=== PATIENT | male | born 1970 | race Caucasian/White ===

== ENCOUNTER 2021-09-30 02:47 | Emergency (ER) | payer MEDICAID, SELFPAY ==
[2021-09-30 02:57] VITALS: BP 148/72; PULSE 70; O2SAT 99
[2021-09-30 03:00] VITALS: BP 121/57; PULSE 77; RESP 16; O2SAT 99; BMI 23.3
--- NOTE | 2021-09-30 06:03 | ED_ITS ---
HPI - General Adult General Chief complaint: Extremity Problem Stated complaint: sick person? Time Seen by Provider: 09/30/21 06:03 Source: patient Mode of arrival: EMS History of Present Illness HPI narrative: 51-year-old male brought in by EMS and patient is reporting chronic numbness to bilateral feet. According to the patient he was kicked out of the detention in [place] today for 2 months. Patient readily endorses that he is unable to be on the cold and rain and states ?I do not want to get sick?. He denies any drugs or alcohol and is requesting assistance to find a new detention. Otherwise, denies any constitutional symptoms. Related Data Allergies Allergy/AdvReac Type Severity Reaction Status Date / Time Penicillins [PCN] Allergy Rash Verified 09/30/21 03:04 Review of Systems Review of Systems: Pertinent positives and negatives as stated in HPI 10 point review of systems is otherwise negative. [facility] Social History Social History Advance Directives: No Advance Directives Information Provided: Yes Physical Exam ED Vital Signs: Vital Signs - 24 hr 09/30/21 03:00 Pulse Rate 77 Respiratory Rate 16 Blood Pressure 121/57 L Pulse Oximetry 99 BMI result Body Mass Index 23.3 VITAL SIGNS: Reviewed. GENERAL: Poor hygiene, in no acute distress. HEAD: Normocephalic/atraumatic EYES: PERRLA, EOMI EARS: Ext canals without abnormality OROPHARYNX: no oral lesions noted, posterior pharynx clear LUNGS: Normal breath sounds. No adventitious sounds or accessory muscle use. SpO2<99> CARDIOVASCULAR: Regular rate and rhythm without noted murmurs ABDOMEN: Soft, non-tender, non-distended with bowel sounds. MUSCULOSKELETAL: No tenderness, deformities, or effusions noted on gross inspection. EXTREMITIES: No cyanosis, clubbing or edema. SKIN: Inspection of the skin reveals no rashes NEUROLOGIC: Alert and oriented x 4. Strength and sensation to light touch were g rossly intact x 4. Course Course Course Narrative: 51-year-old male with presentation of chronic bilateral lower extremity numbness. Clinical exam and history is otherwise benign and he was discharged home in stable condition with a list of potential shelters in the area. Discharge Plan Discharge Clinical Impression: Numbness and tingling of both lower extremities Patient Disposition: Home, Self-Care Instructions: Paresthesia (ED) Additional Instructions: 1. Follow-up with your primary care provider. 2. You have been provided with a list of potential shelters in the area. Return to the ER for worsening symptoms.
== END 2021-09-30 06:47 | disposition home or self-care (01) ==
PROVIDERS: Emergency Provider Student in an Organized Health Care Education/Training Program
DX: R20.0 Anesthesia of skin (principal)
CPT/HCPCS: 99282; 99283